=== PATIENT | female | born 1950 | race African-American/Black ===

== ENCOUNTER 2019-04-18 10:07 | Inpatient (IN) | payer MEDICARE, OTHER ==
[~2019-04-18] VITALS: Ht 165.1 cm; Wt 86.2 kg
[~2019-04-18 10:07] MED LIST: AMOX500T2 PO
[2019-04-18] MEDS ORDERED: IBUPROFEN 600MG TABLET ONE (10:25)
[2019-04-18] MEDS ORDERED: ACETAMINOPHEN 325MG TABLET PO STA (13:54)
[2019-04-18] MEDS ORDERED: PIPERACILLIN/TAZ 3.375G PREMIX 50 ML IV ONE (14:00)
[2019-04-18] MEDS ORDERED: SODIUM CHLORIDE 0.9% 1000ML BAG (SEPSIS BOLUS) IV ONE (14:00)
[2019-04-18] MEDS ORDERED: VANCOMYCIN 1 G PREMIX 200 ML IV ONE (14:00)
[2019-04-18 14:28] LABS: BASOPHILS % 0.5 % (0.0-2.0); EOSINOPHILS % 0.1 % (0.0-5.0); HEMATOCRIT. 37.2 % (36.0-48.0); HEMOGLOBIN. 12.4 g/dL (12.0-16.0); LYMPHOCYTES % 8.5 % (20.0-50.0); MEAN CORPUSCULAR HEMOGLOBIN 29.9 pg (28.0-32.0); MEAN CORPUSCULAR VOLUME 89.2 fL (81.0-99.0); MEAN PLATELET VOLUME 8.3 fl (7.4-10.4); MONOCYTES % 12.5 % (2.0-8.0); NEUTROPHILS % 78.4 % (40.0-76.0); PLATELET 171 x1000/uL (130-400); RED BLOOD CELL COUNT 4.17 mill/uL (4.2-5.4); RED CELL DISTRIBUTION WIDTH 13.8 % (11.6-14.6)
[2019-04-18 14:39] LABS: CHLORIDE 108 mEq/L (98-107)
[2019-04-18 15:55] LABS: CLARITY URINE CLOUDY (CLEAR); COLOR URINE YELLOW (YELLOW); KETONES URINE TRACE (NEGATIVE); LEUKOCYTE ESTERASE URINE 3+ (NEGATIVE); NITRITE URINE NEGATIVE (NEGATIVE); OCCULT BLOOD URINE 1+ (NEGATIVE); PROTEIN URINE NEGATIVE (NEGATIVE); SPECIFIC GRAVITY URINE 1.018 (1.005-1.030); UROBILINOGEN URINE 0.2 E.U./dL (0.2-1.0)
[2019-04-18 21:30] VITALS: BP 101/56
[2019-04-18] MEDS ORDERED: SIMV10TA97 PO (22:33)
[2019-04-18] MEDS ORDERED: LEVE10006 PO (22:34)
[2019-04-18] MEDS ORDERED: DIVA500T3 PO (22:34)
[2019-04-18] MEDS ORDERED: CAPT25TA3 PO (22:34)
[2019-04-18] MEDS ORDERED: LEVE500T98 PO (22:34)
[2019-04-18] MEDS ORDERED: CLONIDINE 0.1MG TABLET PO PRN (23:15)
[2019-04-18] MEDS ORDERED: ONDANSETRON HCL 4MG/2ML INJ IV PRN (23:15)
[2019-04-18] MEDS ORDERED: IPRATROPIUM/ALBUTEROL 0.5-3(2.5)MG/3ML NEB HHN PRN (23:15)
[2019-04-18] MEDS: SODIUM CHLORIDE 0.9% 1,000 ML IV SCH (23:59)
[2019-04-19] VITALS: BP 112/51
[2019-04-19] MEDS: ATORVASTATIN CALCIUM 10MG TABLET PO SCH ×2 (00:11→21:38)
[2019-04-19] MEDS: LEVETIRACETAM 500MG TABLET PO SCH ×3 (00:11→21:38)
[2019-04-19] MEDS: DIVALPROEX SODIUM 250MG DR TABLET PO SCH ×3 (00:12→21:39)
[2019-04-19] MEDS: ACETAMINOPHEN 650MG/20.3ML UDC PO PRN ×4 (00:12→20:01)
[2019-04-19 00:45] LABS: CREATINE KINASE 323 IU/L (26-192); CREATINE KINASE MB FRACTION 2.1 ng/mL (0.5-3.6)
[2019-04-19] MEDS ORDERED: CEFTRIAXONE 1 G PREMIX 50 ML IV SCH (01:00)
[2019-04-19] MEDS ORDERED: AZITHROMYCIN 500 MG in DEXT 5% WATER 250 ML IV SCH (02:00)
[2019-04-19 04:00] VITALS: BP 102/59
[2019-04-19 07:01] LABS: CHLORIDE 110 mEq/L (98-107)
[2019-04-19 07:09] LABS: BASOPHILS % 0.3 % (0.0-2.0); EOSINOPHILS % 0.4 % (0.0-5.0); HEMATOCRIT. 34.4 % (36.0-48.0); HEMOGLOBIN. 11.5 g/dL (12.0-16.0); LYMPHOCYTES % 12.4 % (20.0-50.0); MEAN CORPUSCULAR VOLUME 89.9 fL (81.0-99.0); MEAN PLATELET VOLUME 9.1 fl (7.4-10.4); MONOCYTES % 11.7 % (2.0-8.0); NEUTROPHILS % 75.2 % (40.0-76.0); PLATELET 164 x1000/uL (130-400); RED BLOOD CELL COUNT 3.82 mill/uL (4.2-5.4); RED CELL DISTRIBUTION WIDTH 14.1 % (11.6-14.6)
[2019-04-19 07:23] LABS: LDL CHOLESTEROL 47 mg/dL (5-100)
[2019-04-19 07:26] LABS: HDL CHOLESTEROL 54 mg/dL (40-59)
[2019-04-19 08:00] VITALS: BP 108/50
[2019-04-19] MEDS: CAPTOPRIL 12.5MG TABLET PO SCH ×3 (08:36→21:00)
[2019-04-19] MEDS: ENOXAPARIN 40MG/0.4ML SYR SUBCUT SCH (08:37)
[2019-04-19 12:28] VITALS: BP 113/53
[2019-04-19] MEDS ORDERED: PHENOL/SODIUM PHENOLATE 1.4% SRPAY 177ML MM PRN (12:30)
[2019-04-19 13:25] LABS: CREATINE KINASE 280 IU/L (26-192)
[2019-04-19 13:26] LABS: CREATINE KINASE MB FRACTION 1.2 ng/mL (0.5-3.6)
[2019-04-19 15:49] VITALS: BP 120/68
[2019-04-19] MEDS ORDERED: KETOROLAC 30MG/ML VIAL IV NR (17:00)
[2019-04-19] MEDS: SODIUM CHLORIDE 0.9% 1,000 ML IV SCH (17:22)
[2019-04-19 20:00] VITALS: BP 116/61
[2019-04-19] MEDS: CEFTRIAXONE 1 G PREMIX 50 ML IV SCH (20:05)
[2019-04-19] MEDS: AZITHROMYCIN 500 MG in DEXT 5% WATER 250 ML IV SCH (21:20)
[2019-04-19] MEDS: FLUTICASONE PROPIONATE 50MCG/SPRAY BOTTLE BOTHNSTRLS SCH (21:41)
[2019-04-20] VITALS: BP 114/68
[2019-04-20] MEDS: HYDROCODONE/ACETAMINOPHEN 5/325MG TABLET PO PRN ×2 (02:30→20:57)
[2019-04-20 04:00] VITALS: BP 121/68
[2019-04-20 07:58] LABS: CHLORIDE 113 mEq/L (98-107)
[2019-04-20 08:00] VITALS: BP 115/67
[2019-04-20 08:12] LABS: BASOPHILS % 0.3 % (0.0-2.0); EOSINOPHILS % 1.6 % (0.0-5.0); HEMOGLOBIN. 10.9 g/dL (12.0-16.0); LYMPHOCYTES % 17.8 % (20.0-50.0); MEAN CORPUSCULAR HEMOGLOBIN 29.8 pg (28.0-32.0); MEAN CORPUSCULAR VOLUME 90.2 fL (81.0-99.0); MEAN PLATELET VOLUME 9.1 fl (7.4-10.4); MONOCYTES % 10.4 % (2.0-8.0); NEUTROPHILS % 69.9 % (40.0-76.0); PLATELET 175 x1000/uL (130-400); RED BLOOD CELL COUNT 3.65 mill/uL (4.2-5.4); RED CELL DISTRIBUTION WIDTH 14.3 % (11.6-14.6)
[2019-04-20] MEDS: DIVALPROEX SODIUM 250MG DR TABLET PO SCH ×2 (09:20→20:53)
[2019-04-20] MEDS: LEVETIRACETAM 500MG TABLET PO SCH ×2 (09:20→20:53)
[2019-04-20] MEDS: CAPTOPRIL 12.5MG TABLET PO SCH ×2 (09:21→20:54)
[2019-04-20] MEDS: SODIUM CHLORIDE 0.9% 1,000 ML IV SCH (09:25)
[2019-04-20] MEDS: ENOXAPARIN 40MG/0.4ML SYR SUBCUT SCH (09:25)
[2019-04-20] MEDS: FLUTICASONE PROPIONATE 50MCG/SPRAY BOTTLE BOTHNSTRLS SCH ×2 (09:25→20:52)
[2019-04-20 16:00] VITALS: BP 124/64
[2019-04-20 20:00] VITALS: BP 142/77
[2019-04-20] MEDS: CEFTRIAXONE 1 G PREMIX 50 ML IV SCH (20:52)
[2019-04-20] MEDS: ATORVASTATIN CALCIUM 10MG TABLET PO SCH (20:54)
[2019-04-20] MEDS: AZITHROMYCIN 500 MG in DEXT 5% WATER 250 ML IV SCH (20:57)
[2019-04-21] VITALS: BP 108/62
[2019-04-21] MEDS: SODIUM CHLORIDE 0.9% 1,000 ML IV SCH ×2 (02:48→22:57)
[2019-04-21 03:27] LABS: *BENZODIAZEPINES SCREEN URINE NEGATIVE (NEGATIVE); *COCAINE SCREEN URINE NEGATIVE (NEGATIVE); METHADONE URINE SCREEN NEGATIVE (NEGATIVE); OPIATES URINE SCREEN PRESUMTIVE POSITIVE (NEGATIVE); PHENCYCLIDINE URINE SCREEN NEGATIVE (NEGATIVE)
[2019-04-21 03:28] LABS: *AMPHETAMINES SCREEN URINE NEGATIVE (NEGATIVE); *BARBITURATES SCREEN URINE NEGATIVE (NEGATIVE); CANNABINOID URINE SCREEN NEGATIVE (NEGATIVE)
[2019-04-21] MEDS: ACETAMINOPHEN 650MG/20.3ML UDC PO PRN ×4 (03:46→21:20)
[2019-04-21 04:02] VITALS: BP_SYST 122; BP_SYST 97; BP_DIAS 57; BP_DIAS 68
[2019-04-21 05:51] LABS: BASOPHILS % 0.5 % (0.0-2.0); EOSINOPHILS % 2.2 % (0.0-5.0); HEMATOCRIT. 31.7 % (36.0-48.0); HEMOGLOBIN. 10.8 g/dL (12.0-16.0); LYMPHOCYTES % 19.8 % (20.0-50.0); MEAN CORPUSCULAR HEMOGLOBIN 30.3 pg (28.0-32.0); MEAN CORPUSCULAR VOLUME 88.8 fL (81.0-99.0); MONOCYTES % 10.8 % (2.0-8.0); NEUTROPHILS % 66.7 % (40.0-76.0); PLATELET 165 x1000/uL (130-400); RED BLOOD CELL COUNT 3.57 mill/uL (4.2-5.4); RED CELL DISTRIBUTION WIDTH 13.8 % (11.6-14.6)
[2019-04-21 06:02] LABS: CHLORIDE 109 mEq/L (98-107)
[2019-04-21 08:00] VITALS: BP 125/68
[2019-04-21] MEDS: CAPTOPRIL 12.5MG TABLET PO SCH ×2 (08:47→21:20)
[2019-04-21] MEDS: LEVETIRACETAM 500MG TABLET PO SCH ×2 (08:48→21:18)
[2019-04-21] MEDS: DIVALPROEX SODIUM 250MG DR TABLET PO SCH ×2 (08:48→21:18)
[2019-04-21] MEDS: ENOXAPARIN 40MG/0.4ML SYR SUBCUT SCH (08:49)
[2019-04-21] MEDS: FLUTICASONE PROPIONATE 50MCG/SPRAY BOTTLE BOTHNSTRLS SCH ×2 (09:00→21:18)
[2019-04-21 11:52] VITALS: BP 119/64
[2019-04-21 16:00] VITALS: BP 119/64
[2019-04-21 20:00] VITALS: BP 124/66
[2019-04-21] MEDS: CEFTRIAXONE 1 G PREMIX 50 ML IV SCH (21:10)
[2019-04-21] MEDS: ATORVASTATIN CALCIUM 10MG TABLET PO SCH (21:20)
[2019-04-21] MEDS: AZITHROMYCIN 500 MG in DEXT 5% WATER 250 ML IV SCH (21:21)
[2019-04-22] VITALS: BP 111/55
[2019-04-22] MEDS: ACETAMINOPHEN 650MG/20.3ML UDC PO PRN ×4 (01:46→23:26)
[2019-04-22 04:00] VITALS: BP 122/65
[2019-04-22 08:00] VITALS: BP 145/83
[2019-04-22 08:42] LABS: BASOPHILS % 0.5 % (0.0-2.0); EOSINOPHILS % 2.6 % (0.0-5.0); HEMATOCRIT. 33.8 % (36.0-48.0); HEMOGLOBIN. 11.3 g/dL (12.0-16.0); LYMPHOCYTES % 21.9 % (20.0-50.0); MEAN CORPUSCULAR HEMOGLOBIN 29.8 pg (28.0-32.0); MEAN CORPUSCULAR VOLUME 89.4 fL (81.0-99.0); MEAN PLATELET VOLUME 8.1 fl (7.4-10.4); MONOCYTES % 14.3 % (2.0-8.0); NEUTROPHILS % 60.7 % (40.0-76.0); PLATELET 213 x1000/uL (130-400); RED BLOOD CELL COUNT 3.78 mill/uL (4.2-5.4)
[2019-04-22] MEDS: FLUTICASONE PROPIONATE 50MCG/SPRAY BOTTLE BOTHNSTRLS SCH ×2 (09:20→20:50)
[2019-04-22] MEDS: LEVETIRACETAM 500MG TABLET PO SCH ×2 (09:21→20:50)
[2019-04-22] MEDS: DIVALPROEX SODIUM 250MG DR TABLET PO SCH ×2 (09:21→20:51)
[2019-04-22] MEDS: CAPTOPRIL 12.5MG TABLET PO SCH ×2 (09:21→20:50)
[2019-04-22] MEDS: ENOXAPARIN 40MG/0.4ML SYR SUBCUT SCH (09:23)
[2019-04-22 09:35] LABS: CHLORIDE 112 mEq/L (98-107)
[2019-04-22 12:00] VITALS: BP 127/61
[2019-04-22] MEDS: CEFEPIME 2,000 MG in DEXT 5% WATER 100 ML IV SCH ×2 (13:02→20:49)
[2019-04-22] MEDS: SODIUM CHLORIDE 0.9% 1,000 ML IV SCH (13:03)
[2019-04-22 16:00] VITALS: BP 132/62
[2019-04-22] MEDS: PSEUDOEPHEDRINE HCL 30MG TABLET PO PRN (16:06)
[2019-04-22 20:00] VITALS: BP 127/67
[2019-04-22] MEDS: ATORVASTATIN CALCIUM 10MG TABLET PO SCH (20:51)
[2019-04-22] MEDS: AZITHROMYCIN 500 MG in DEXT 5% WATER 250 ML IV SCH (21:49)
[2019-04-23] VITALS: BP 121/57
[2019-04-23 04:00] VITALS: BP 111/52
[2019-04-23] MEDS: SODIUM CHLORIDE 0.9% 1,000 ML IV SCH ×2 (05:34→21:06)
[2019-04-23] MEDS: ACETAMINOPHEN 650MG/20.3ML UDC PO PRN ×3 (05:42→22:21)
[2019-04-23 08:00] VITALS: BP 130/74
[2019-04-23] MEDS: ENOXAPARIN 40MG/0.4ML SYR SUBCUT SCH (08:20)
[2019-04-23] MEDS: CEFEPIME 2,000 MG in DEXT 5% WATER 100 ML IV SCH ×2 (08:20→21:04)
[2019-04-23] MEDS: LEVETIRACETAM 500MG TABLET PO SCH ×2 (08:20→21:05)
[2019-04-23] MEDS: DIVALPROEX SODIUM 250MG DR TABLET PO SCH ×2 (08:20→21:05)
[2019-04-23] MEDS: CAPTOPRIL 12.5MG TABLET PO SCH ×2 (08:20→21:06)
[2019-04-23 16:48] LABS: HEMATOCRIT. 34.2 % (36.0-48.0); HEMOGLOBIN. 11.4 g/dL (12.0-16.0); MEAN CORPUSCULAR VOLUME 90.1 fL (81.0-99.0); MEAN PLATELET VOLUME 7.9 fl (7.4-10.4); PLATELET 252 x1000/uL (130-400)
[2019-04-23 17:29] VITALS: BP 131/71
[2019-04-23 17:52] LABS: ATYPICAL LYMPHOCYTES 1; PLATELET ESTIMATE NORMAL
[2019-04-23 20:00] VITALS: BP 138/65
[2019-04-23] MEDS: AZITHROMYCIN 500 MG in DEXT 5% WATER 250 ML IV SCH (21:05)
[2019-04-23] MEDS: ATORVASTATIN CALCIUM 10MG TABLET PO SCH (21:06)
[2019-04-23] MEDS: PSEUDOEPHEDRINE HCL 30MG TABLET PO PRN (22:27)
[2019-04-24] VITALS: BP 130/70
[2019-04-24 04:00] VITALS: BP 132/64
[2019-04-24 08:00] VITALS: BP 120/55
[2019-04-24] MEDS: ACETAMINOPHEN 650MG/20.3ML UDC PO PRN ×2 (09:00→17:01)
[2019-04-24] MEDS: ENOXAPARIN 40MG/0.4ML SYR SUBCUT SCH (09:00)
[2019-04-24] MEDS: CAPTOPRIL 12.5MG TABLET PO SCH ×2 (09:00→21:57)
[2019-04-24] MEDS: DIVALPROEX SODIUM 250MG DR TABLET PO SCH ×2 (09:00→21:59)
[2019-04-24] MEDS: LEVETIRACETAM 500MG TABLET PO SCH ×2 (09:00→21:58)
[2019-04-24] MEDS: CEFEPIME 2,000 MG in DEXT 5% WATER 100 ML IV SCH ×2 (09:00→20:04)
[2019-04-24 12:00] VITALS: BP 133/70
[2019-04-24] MEDS: SODIUM CHLORIDE 0.9% 1,000 ML IV SCH ×2 (13:05→17:01)
[2019-04-24 16:00] VITALS: BP 119/59
[2019-04-24 20:00] VITALS: BP 121/58
[2019-04-24] MEDS: AZITHROMYCIN 500 MG in DEXT 5% WATER 250 ML IV SCH (21:17)
[2019-04-24] MEDS: ATORVASTATIN CALCIUM 10MG TABLET PO SCH (21:58)
[2019-04-24] MEDS: PSEUDOEPHEDRINE HCL 30MG TABLET PO PRN (22:47)
[2019-04-25] VITALS: BP 137/76
[2019-04-25 04:00] VITALS: BP 127/72
[2019-04-25 08:00] VITALS: BP 117/59
[2019-04-25] MEDS: CEFEPIME 2,000 MG in DEXT 5% WATER 100 ML IV SCH (08:51)
[2019-04-25] MEDS: ENOXAPARIN 40MG/0.4ML SYR SUBCUT SCH (08:52)
[2019-04-25] MEDS: LEVETIRACETAM 500MG TABLET PO SCH (08:53)
[2019-04-25] MEDS: DIVALPROEX SODIUM 250MG DR TABLET PO SCH (08:53)
[2019-04-25] MEDS: CAPTOPRIL 12.5MG TABLET PO SCH (08:53)
[2019-04-25] MEDS ORDERED: ACET650T37 MT (11:34)
[2019-04-25] MEDS ORDERED: PSEU-207 MT (11:34)
[2019-04-25 12:00] VITALS: BP 125/59
[2019-04-25 13:34] VITALS: BP 125/59
[2019-04-25 16:00] VITALS: BP 128/61
== END 2019-04-25 16:50 | disposition home or self-care (01) | DRG 871 ==
LOC: ER 10:42 → 6WST 16:19 → EDBEDREQSVC 16:21 → EDBEDREQ 16:21 → EDBEDREQTM 16:21 → ENRESERV 20:52
PROVIDERS: ADMIT Internal Medicine; ATTEND Internal Medicine
DX: A40.1 Sepsis due to streptococcus, group B (principal); J96.00 Acute respiratory failure, unspecified whether with hypoxia or hypercapnia; J18.9 Pneumonia, unspecified organism; N39.0 Urinary tract infection, site not specified; N17.9 Acute kidney failure, unspecified; E78.5 Hyperlipidemia, unspecified; D72.821 Monocytosis (symptomatic); M71.21 Synovial cyst of popliteal space [Baker], right knee; G40.909 Epilepsy, unspecified, not intractable, without status epilepticus; I10 Essential (primary) hypertension; D64.9 Anemia, unspecified; Z88.8 Allergy status to other drugs, medicaments and biological substances; Z79.899 Other long term (current) drug therapy
CPT/HCPCS: 36415; 71045; 71250; 80048; 80053; 80061; 80305; 81003; 82550; 82553; 83605; 84145; 84484; 85025; 87077; 87804; 93005; 93970; 99285; J0456; J0692; J0696; J1650; J1885; J2543; J3370; J7030; J7060